=== PATIENT | male | born 1955 | race Caucasian/White ===

== ENCOUNTER 2016-08-25 19:54 | Inpatient (IN) | payer MEDICARE ==
[~2016-08-25] VITALS: Ht 172.7 cm; Wt 93.1 kg
[2016-08-25] MEDS ORDERED: PROP60CA2 PO (20:09)
[2016-08-25 20:23] LABS: BASOPHILS % (AUTO) 0.3 % (0.0-2.0); EOSINOPHILS % (AUTO) 1.7 % (1.0-6.0); HEMATOCRIT 42.2 % (41-53); HEMOGLOBIN 14.4 g/dL (13.5-17.5); MEAN CORPUSCULAR HEMOGLOBIN 31.9 pg (26.0-34.0); MEAN CORPUSCULAR HGB CONC 34.2 G/dL (31.0-37.0); MEAN CORPUSCULAR VOLUME 93 fL (80-100); MONOCYTES # (AUTO) 0.5 K/uL (0.1-1.0); MONOCYTES % (AUTO) 4.7 % (2.0-9.0); NEUTROPHILS # (AUTO) 8.5 K/uL (1.8-7.7); NEUTROPHILS % (AUTO) 75.3 % (40.0-70.0); PLATELET COUNT (AUTO) 187 K/uL (150-450); RED BLOOD CELL COUNT(AUTO) 4.53 MIL/uL (4.50-5.90); RED CELL DISTRIBUTION WIDTH 13.2 % (11.5-14.5); WHITE BLOOD COUNT (AUTO) 11.3 K/uL (4.5-11.0)
[2016-08-25 20:33] LABS: ANION GAP 9 mmol/L (8-16); CALCIUM, TOTAL 9.4 mg/dL (8.8-10.5); CARBON DIOXIDE 26 mmol/L (22-29); CHLORIDE 102 mmol/L (98-107); CREATININE 1.11 mg/dL (0.60-1.30); GLOMERULAR FILTR. RATE CALC > 60 mL/min (>60); SODIUM SERUM 137 mmol/L (136-145); UREA NITROGEN, BLOOD 17 mg/dL (7-18)
[2016-08-25 20:58] LABS: ALANINE AMINOTRANSFERASE 40 U/L (12-78); ALBUMIN 4.1 g/dL (3.4-5.0); ASPARTATE AMINOTRANSFERASE 18 U/L (15-37); BILIRUBIN,TOTAL 0.6 mg/dL (0.1-1.0); CREATINE KINASE MB 0.8 ng/mL (0-5); CREATINE KINASE, TOTAL 132 U/L (39-308); TOTAL PROTEIN, SERUM 7.5 g/dL (6.4-8.2)
[2016-08-25 21:21] LABS: PROTHROMBIN TIME 10.5 SEC (9.4-11.6)
[2016-08-25 22:11] LABS: ADD UA MICROSCOPIC YES; APPEARANCE,URINE CLEAR (CLEAR); GLUCOSE, URINE (UA) NEGATIVE (NEGATIVE); KETONES,URINE 15 mg/dL (NEGATIVE); LEUKOCYTE ESTERASE ,URINE NEGATIVE (NEGATIVE); OCCULT BLOOD,URINE LARGE (NEGATIVE); PH,URINE 5.5 (5.0-8.0); PROTEIN,URINE POS 1+ (NEGATIVE)
[2016-08-25 22:23] LABS: SQUAMOUS EPITHELIAL CELL,UR Few /LPF (None Seen)
[2016-08-25] MEDS ORDERED: HYDROmorphone 2 MG/ML SYRINGE IVP ONE (23:30)
[2016-08-25] MEDS ORDERED: BARIUM SULFATE 0.1% SUSPENSION 450 ML BOTTLE PO ONE (23:30)
[2016-08-25] MEDS ORDERED: ONDANSETRON HCL 4 MG/2 ML VIAL IVP ONE (23:30)
[2016-08-25] MEDS ORDERED: ONDANSETRON HCL 4 MG/2 ML VIAL IVP PRN (23:45)
[2016-08-25] MEDS ORDERED: ACETAMINOPHEN 325 MG TABLET PO PRN (23:45)
[2016-08-25] MEDS ORDERED: 0.9% SODIUM CHLORIDE 10 ML SYRINGE IVP PRN (23:45)
[2016-08-26] VITALS (7 sets, daily range): BP systolic 120–143; BP diastolic 66–92
[2016-08-26] MEDS ORDERED: KETOROLAC TROMETHAMINE 30 MG/ML VIAL IVP ONE (00:15)
[2016-08-26] MEDS ORDERED: ASPIRIN 325 MG TABLET PO ONE (00:45)
[2016-08-26] MEDS ORDERED: NITROGLYCERIN 2% (1 GM=INCH) PACKET TP ONE (00:45)
[2016-08-26 06:13] LABS: BASOPHILS % (AUTO) 0.4 % (0.0-2.0); EOSINOPHILS % (AUTO) 0.8 % (1.0-6.0); LYMPHOCYTES # (AUTO) 2.7 K/uL (1.0-4.8); LYMPHOCYTES % (AUTO) 27.9 % (22.0-44.0); MEAN CORPUSCULAR HGB CONC 34.2 G/dL (31.0-37.0); MEAN CORPUSCULAR VOLUME 94 fL (80-100); MONOCYTES # (AUTO) 0.9 K/uL (0.1-1.0); MONOCYTES % (AUTO) 8.7 % (2.0-9.0); NEUTROPHILS # (AUTO) 6.1 K/uL (1.8-7.7); NEUTROPHILS % (AUTO) 62.2 % (40.0-70.0); PLATELET COUNT (AUTO) 174 K/uL (150-450); RED BLOOD CELL COUNT(AUTO) 4.05 MIL/uL (4.50-5.90); RED CELL DISTRIBUTION WIDTH 12.9 % (11.5-14.5); WHITE BLOOD COUNT (AUTO) 9.8 K/uL (4.5-11.0)
[2016-08-26 06:23] LABS: ALBUMIN 3.6 g/dL (3.4-5.0); BILIRUBIN,TOTAL 0.5 mg/dL (0.1-1.0); CALCIUM, TOTAL 8.8 mg/dL (8.8-10.5); CREATININE 1.43 mg/dL (0.60-1.30); TOTAL PROTEIN, SERUM 6.6 g/dL (6.4-8.2)
[2016-08-26] MEDS ORDERED: MORPHINE SULFATE 2 MG/ML SYRINGE IVP PRN (08:30)
[2016-08-26] MEDS ORDERED: NITROGLYCERIN 2% (1 GM=INCH) PACKET TP PRN (08:30)
[2016-08-26] MEDS ORDERED: ONDANSETRON HCL 4 MG/2 ML VIAL IVP PRN (08:30)
[2016-08-26] MEDS ORDERED: PROPRANOLOL HCL 60 MG SR CAPSULE PO SCH (09:00)
[2016-08-26] MEDS ORDERED: CefTRIAXone 1 GM/DEXTROSE 50 ML IV SCH (16:00)
[2016-08-26] MEDS ORDERED: HYDROmorphone 2 MG/ML SYRINGE IVP PRN (16:15)
[2016-08-26] MEDS ORDERED: MEPERIDINE-PF 25 MG/ML SYRINGE IVP PRN (16:15)
[2016-08-26] MEDS ORDERED: FentaNYL CITRATE-PF 100 MCG/2 ML VIAL IVP PRN (16:15)
[2016-08-26] MEDS ORDERED: SODIUM CHLORIDE 0.9% 1,000 ML IV ONE ×2 (16:30→17:00)
[2016-08-26] MEDS ORDERED: IOHEXOL 240 MG/ML 20 ML VIAL ONE (17:23)
[2016-08-26] MEDS ORDERED: SODIUM CL IRRIG SOLN BAG 6,000 ML IRRIG ONE (17:23)
[2016-08-26] MEDS ORDERED: OXYGEN THERAPY IH SCH (20:00)
[2016-08-26] MEDS ORDERED: ONDANSETRON HCL 4 MG/2 ML VIAL IVP ONE (21:09)
[2016-08-26] MEDS ORDERED: LIDOCAINE HCL/PF 2% 5 ML VIAL INJ ONE (21:09)
[2016-08-26] MEDS ORDERED: FentaNYL CITRATE-PF 100 MCG/2 ML VIAL IVP ONE (21:09)
[2016-08-26] MEDS ORDERED: PROPOFOL 1% 20 ML VIAL IVP ONE (21:09)
[2016-08-26] MEDS ORDERED: MIDAZOLAM HCL 2 MG/2 ML VIAL IVP ONE (21:09)
== END 2016-08-26 21:10 | disposition left against medical advice (07) | DRG 694 ==
LOC: EMS 19:57 → 5N 23:59 → 6N 08-26 16:30
PROVIDERS: ADMIT Internal Medicine; ATTEND Internal Medicine
PROC: BT1D1ZZ Fluoroscopy of Right Kidney, Ureter and Bladder using Low Osmolar Contrast (ICD-10-PCS; 2016-08-26)
PROC: 0T768DZ Dilation of Right Ureter with Intraluminal Device, Via Natural or Artificial Opening Endoscopic (ICD-10-PCS; principal; 2016-08-26 17:40)
DX: N20.1 Calculus of ureter (principal); N17.9 Acute kidney failure, unspecified; N39.0 Urinary tract infection, site not specified; I10 Essential (primary) hypertension; F17.210 Nicotine dependence, cigarettes, uncomplicated; R31.9 Hematuria, unspecified; E86.0 Dehydration; R07.9 Chest pain, unspecified; Z53.21 Procedure and treatment not carried out due to patient leaving prior to being seen by health care provider; Z79.899 Other long term (current) drug therapy; Z87.442 Personal history of urinary calculi
CPT/HCPCS: 74176; 74420; 87086; 93005; 96374; 96375; 99285; J0696; J1170; J1885; J2250; J2405; J2704; J3010; J3490; J7030; Q9966